=== PATIENT | male | born 1975 | race Caucasian/White ===

== ENCOUNTER 2021-03-25 04:59 | Emergency (ER) | payer SELFPAY ==
[~2021-03-25] VITALS: Ht 188 cm; Wt 86.4 kg
[2021-03-25] MEDS ORDERED: LORazepam 2 mg/ml vial IM ONE (05:05)
[2021-03-25 05:33] VITALS: BP 153/88
== END 2021-03-25 05:34 ==
LOC: ER 04:59
DX: F12.10 Cannabis abuse, uncomplicated (principal); Z02.89 Encounter for other administrative examinations
CPT/HCPCS: 93005; 96372; 99283; J2060

== ENCOUNTER 2024-04-30 05:55 | Emergency (ER) | payer SELFPAY ==
[~2024-04-30] VITALS: Ht 190.5 cm; Wt 85.8 kg
[2024-04-30 06:11] VITALS: BP 119/77; PULSE 62; RESP 16; TEMP 98.1; O2SAT 97
== END 2024-04-30 10:10 | disposition left against medical advice (07) ==
LOC: ER 05:55
DX: M79.671 Pain in right foot (principal); M79.89 Other specified soft tissue disorders; Z53.21 Procedure and treatment not carried out due to patient leaving prior to being seen by health care provider

== ENCOUNTER 2024-05-13 18:43 | Emergency (ER) | payer SELFPAY ==
[~2024-05-13] VITALS: Ht 185.4 cm; Wt 80.6 kg
[2024-05-13 18:45] VITALS: BP 123/78; PULSE 69; RESP 16; O2SAT 96
[2024-05-13] MEDS ORDERED: CLIN300C54 PO (19:01)
[2024-05-13 19:23] VITALS: TEMP 99
== END 2024-05-13 19:25 | disposition home or self-care (01) ==
LOC: ER 18:44
DX: S90.931A Unspecified superficial injury of right great toe, initial encounter (principal); X58.XXXA Exposure to other specified factors, initial encounter; Y93.89 Activity, other specified; Y92.89 Other specified places as the place of occurrence of the external cause; Y99.8 Other external cause status
CPT/HCPCS: 99283